=== PATIENT | female | born 1935 | race Hispanic/Latino ===

== ENCOUNTER 2024-05-27 08:54 | Emergency (ER) | payer MEDICARE ==
[~2024-05-27] VITALS: Ht 147.3 cm; Wt 49.4 kg
[~2024-05-27 08:54] MED LIST: NAPROXEN250 MG PO; PREDNISONE20 MG PO
[2024-05-27 09:08] VITALS: TEMP 97.7
[2024-05-27 10:06] LABS: BASOPHILS % 0.4 % (0.0-1.0); EOSINOPHILS # (AUTO) 0.1 (0.0-0.4); EOSINOPHILS % 0.6 % (0.0-6.0); HEMATOCRIT 40.1 % (34.2-44.1); HEMOGLOBIN 13.6 g/dL (12.0-16.0); LYMPHOCYTES # (AUTO) 1.8 (1.0-3.2); LYMPHOCYTES % 21.8 % (18.0-39.1); MEAN CORPUSCULAR HEMOGLOBIN 30.2 pg (28-32); MEAN CORPUSCULAR HGB CONC 33.9 g/dL (31-35); MEAN CORPUSCULAR VOLUME 89.1 fL (81-99); MONOCYTES # (AUTO) 0.6 (0.2-0.8); MONOCYTES % 7.8 % (4.4-11.3); NEUTROPHILS # (AUTO) 5.5 (2.1-6.9); NEUTROPHILS % 68.9 % (38.7-80.0); PLATELET COUNT 292 x10e3/uL (140-360); WHITE BLOOD COUNT 8.04 x10e3/uL (4.8-10.8)
[2024-05-27 10:11] LABS: BILIRUBIN,URINE NEGATIVE (NEGATIVE); CLARITY,URINE CLEAR (CLEAR); COLOR,URINE YELLOW (YELLOW); GLUCOSE, URINE NEGATIVE (NEGATIVE); KETONES,URINE NEGATIVE (NEGATIVE); LEUKOCYTE ESTERASE ,URINE NEGATIVE (NEGATIVE); NITRITE,URINE NEGATIVE (NEGATIVE); PH,URINE 6.5 (5 - 7); PROTEIN,URINE DIPSTICK 2+ (NEGATIVE); URINE UROBILINOGEN 0.2 mg/dL (0.2 - 1)
[2024-05-27] MEDS: SODIUM CHLORIDE 0.9% 1000ML 1,000 ML IV STA (10:21)
[2024-05-27] MEDS: ONDANSETRON HCL INJ 2MG/ML 2ML 2 MG/ML VIAL IV STA (10:22)
[2024-05-27] MEDS: Morphine 2mg Syringe 2 MG/ML SYR IV STA (10:23)
[2024-05-27 10:26] LABS: ALBUMIN 4.3 g/dL (3.5-5.0); ALBUMIN/GLOBULIN RATIO 1.1 (0.8-2.0); ANION GAP 14.7 mmol/L (8-16); BACTERIA,URINE FEW /HPF; BILIRUBIN,TOTAL 0.8 mg/dL (0.2-1.2); CALCIUM 9.6 mg/dL (8.4-10.2); CREATININE, SERUM 0.7 mg/dL (0.57-1.11); EPITHELIAL CELLS,URINE FEW /LPF; MAGNESIUM 1.8 MG/DL (1.3-2.1); POTASSIUM 3.7 mmol/L (3.5-5.1); RBC,URINE 0-5 /HPF (0-5); TOTAL PROTEIN 8.1 g/dL (6.5-8.1); WBC,URINE (MAN) 0-5 /HPF (0-5)
[2024-05-27 10:31] LABS: TROPONIN I 0.022 ng/mL (0-0.300)
[2024-05-27] MEDS ORDERED: IOPAMIDOL 370 MG/ML 100 ML INFUS..BTL INJ ONE (10:35)
[2024-05-27 10:57] LABS: INR 0.97; PROTHROMBIN TIME 13.5 seconds (11.9-14.5)
[2024-05-27] MEDS ORDERED: DICYCLOMINE HCL20 MG PO (12:55)
[2024-05-27] MEDS ORDERED: ONDANSETRON ODT4 MG PO (12:55)
[2024-05-27 13:40] VITALS: PULSE 76; RESP 16; O2SAT 100
== END 2024-05-27 13:55 | disposition home or self-care (01) ==
LOC: ER 09:01
DX: R10.13 Epigastric pain (principal); R10.12 Left upper quadrant pain; K29.70 Gastritis, unspecified, without bleeding; I10 Essential (primary) hypertension; E78.5 Hyperlipidemia, unspecified; R94.31 Abnormal electrocardiogram [ECG] [EKG]; Z87.442 Personal history of urinary calculi
CPT/HCPCS: 36415; 71045; 74177; 80053; 81001; 82550; 83690; 83735; 84484; 85025; 85610; 85730; 93005; 99283; J2270; J2405; J2470; J7030; Q9967